=== PATIENT | female | born 1955 | race Caucasian/White ===

== ENCOUNTER 2020-09-21 14:34 | Observation (INO) ==
[2020-09-21 15:38] LABS: Basophils # 0.1 10*3/uL (0.0-0.2); Basophils % 0.6 % (0.0-0.8); Eosinophils # 0.4 10*3/uL (0.0-0.87); Eosinophils % 3.2 % (0.00-10.9); Hematocrit 41.7 VOL% (35.7-47.0); Hemoglobin 13.1 GM/DL (12.0-16.0); Immature Granulocytes % 0.6 %; Immature Granulocytes Absolute 0.07 #; Lymphocytes # 1.6 10*3/uL (1.4-4.0); Lymphocytes % 13.5 % (21.3-54.2); Mean Corpuscular HGB Conc 31.4 GM/DL (32-36); Mean Corpuscular Volume 88.2 FL (87-102); Mean Platelet Volume 11.4 FL (9.6-12.0); Monocytes % 6.5 % (1.7-12.7); Neutrophils % 75.6 % (38.7-73.9); Platelet Count 200 T/CUMM (130-400); Red Blood Count 4.73 MC/CUMM (3.8-5.5); Red Cell Distribution Width 14.9 % (9.3-17.3)
[2020-09-21 16:06] LABS: Alanine Aminotransferase 18 U/L (13-56); Albumin 3.4 G/DL (3.4-5.0); Alkaline Phosphatase 101 U/L (45-117); Aspartate Amino Transferase 19 U/L (0-37); Bilirubin,Total < 0.39 MG/DL (0.2-1.0); Blood Urea Nitrogen 19 MG/DL (7-18); Calcium 9.1 MG/DL (8.5-10.1); Carbon Dioxide 22 MMOL/L (21-32); Estimated Glom Filtration Rate 44 ML/MIN; Glucose 164 MG/DL (74-106); Osmolality,Calculated 284.4 MOS/KG (273-304); Potassium 3.6 MMOL/L (3.5-5.1); Sodium 140 MMOL/L (136-145); Total Protein 6.8 G/DL (6.4-8.9)
[2020-09-21] MEDS ORDERED: ENOXAPARIN 30 MG/0.3 ML SYRINGE SUBCUT STA (17:04)
[2020-09-21] MEDS ORDERED: ENOXAPARIN 100 MG/ML SYRINGE SUBCUT ONE (17:14)
[2020-09-21] MEDS: SODIUM CHLORIDE 0.9% 1,000 ML IV SCH (17:29)
[2020-09-21] MEDS ORDERED: ACETAMINOPHEN 325 MG TABLET PO PRN (17:35)
[2020-09-21] MEDS ORDERED: GLUCAGON 1 MG VIAL IM PRN ×2 (17:35)
[2020-09-21] MEDS ORDERED: DEXTROSE 50% 25 GM/50 ML VIAL IV PRN ×2 (17:35)
[2020-09-21] MEDS ORDERED: ONDANSETRON 4 MG/2 ML VIAL IV PRN (17:35)
[2020-09-21] MEDS ORDERED: traZODone 50 MG TABLET PO PRN (18:29)
[2020-09-21] MEDS: INSULIN LISPRO 100 UNIT/ML SUBCUT SCH (23:00)
[2020-09-22] MEDS: levETIRAcetam 500 MG TABLET PO SCH ×3 (00:10→22:27)
[2020-09-22] MEDS: PREGABALIN 100 MG CAPSULE PO SCH ×3 (00:10→22:28)
[2020-09-22] MEDS: SODIUM CHLORIDE 0.9% 1,000 ML IV SCH (05:01)
[2020-09-22 05:52] LABS: Basophils # 0.1 10*3/uL (0.0-0.2); Basophils % 0.9 % (0.0-0.8); Eosinophils # 0.3 10*3/uL (0.0-0.87); Eosinophils % 4.6 % (0.00-10.9); Hematocrit 41.1 VOL% (35.7-47.0); Hemoglobin 12.8 GM/DL (12.0-16.0); Immature Granulocytes % 0.5 %; Immature Granulocytes Absolute 0.04 #; Lymphocytes # 2.1 10*3/uL (1.4-4.0); Lymphocytes % 27.9 % (21.3-54.2); Mean Corpuscular HGB Conc 31.1 GM/DL (32-36); Mean Corpuscular Volume 89.7 FL (87-102); Monocytes % 7.4 % (1.7-12.7); Neutrophils % 58.7 % (38.7-73.9); Platelet Count 173 T/CUMM (130-400); Red Blood Count 4.58 MC/CUMM (3.8-5.5); Red Cell Distribution Width 14.8 % (9.3-17.3); White Blood Count 7.4 T/CUMM (4-12)
[2020-09-22 06:09] LABS: Calcium 8.7 MG/DL (8.5-10.1); Osmolality,Calculated 284.1 MOS/KG (273-304); Risk Ratio 3.35; VLDL CHOLESTEROL 46.8 MG/DL
[2020-09-22] MEDS: INSULIN LISPRO 100 UNIT/ML SUBCUT SCH ×4 (09:28→22:23)
[2020-09-22] MEDS ORDERED: ALBUTEROL/IPRATROPIUM 3 ML NEB RESP TX PRN (10:30)
[2020-09-22] MEDS ORDERED: methylPREDNISolone SOD SUC 40 MG/1 ML VIAL IV ONE (10:30)
[2020-09-22] MEDS: ASPIRIN EC 81 MG TABLET PO SCH (11:08)
[2020-09-22] MEDS: amLODIPine 10 MG TABLET PO SCH (11:08)
[2020-09-22] MEDS: ROSUVASTATIN 10 MG TABLET PO SCH (11:08)
[2020-09-22] MEDS: CLOPIDOGREL 75 MG TABLET PO SCH (11:09)
[2020-09-22] MEDS: allopurinoL 300 MG TABLET PO SCH (11:09)
[2020-09-22] MEDS: TOPIRAMATE 200 MG TABLET PO SCH ×2 (11:09→22:27)
[2020-09-22] MEDS: PANTOPRAZOLE 40 MG TABLET PO SCH ×2 (11:09→22:26)
[2020-09-22] MEDS: THEOPHYLLINE ER 300 MG TABLET PO SCH ×2 (11:10→22:27)
[2020-09-22 13:26] LABS: Bilirubin,Urine Negative (Negative); Blood, Urine Negative (Negative); Glucose,Urine (UA) Negative (Negative); Ketones,Urine Negative (Negative); Mucus,Urine Occasional /LPF (Occasional); Nitrite,Urine Negative (Negative); Protein,Urine Negative; RBC,Urine 4 /HPF (0-4); Squamous Epithelial Cell,Urine Occasional /HPF (0-10); Urine Appearance CLEAR (Clear); Urine Color Straw (Yellow); Urine Specific Gravity 1.009 (1.001-1.035); Urine Urobilinogen < 2.0 EU/DL (0.2-1.0); WBC,Urine 6 /HPF (0-6)
[2020-09-22 16:01] LABS: Barbiturates Screen,Urine Negative (Negative); Benzodiazepines Screen,Urine Negative (Negative); Cannabinoid Screen,Urine Negative (Negative); Opiate Screen,Urine Positive (Negative); Phencyclidine Screen,Urine Negative (Negative)
[2020-09-22] MEDS ORDERED: BENZTROPINE 1 MG TABLET PO SCH (21:00)
[2020-09-22] MEDS ORDERED: risperiDONE 1 MG TABLET PO SCH (21:00)
[2020-09-23 05:59] LABS: Basophils # 0.1 10*3/uL (0.0-0.2); Basophils % 0.7 % (0.0-0.8); Eosinophils # 0.2 10*3/uL (0.0-0.87); Eosinophils % 2.6 % (0.00-10.9); Hematocrit 42.2 VOL% (35.7-47.0); Hemoglobin 13.1 GM/DL (12.0-16.0); Immature Granulocytes % 0.4 %; Immature Granulocytes Absolute 0.03 #; Lymphocytes # 1.7 10*3/uL (1.4-4.0); Lymphocytes % 23.5 % (21.3-54.2); Mean Corpuscular Volume 88.7 FL (87-102); Mean Platelet Volume 11.6 FL (9.6-12.0); Monocytes % 8.3 % (1.7-12.7); Neutrophils % 64.5 % (38.7-73.9); Platelet Count 189 T/CUMM (130-400); Red Blood Count 4.76 MC/CUMM (3.8-5.5); Red Cell Distribution Width 14.6 % (9.3-17.3); White Blood Count 7.3 T/CUMM (4-12)
[2020-09-23 06:10] LABS: Potassium 3.7 MMOL/L (3.5-5.1)
[2020-09-23] MEDS: INSULIN LISPRO 100 UNIT/ML SUBCUT SCH ×3 (08:49→18:57)
[2020-09-23] MEDS: PREGABALIN 100 MG CAPSULE PO SCH (09:12)
[2020-09-23] MEDS: TOPIRAMATE 200 MG TABLET PO SCH (09:12)
[2020-09-23] MEDS: levETIRAcetam 500 MG TABLET PO SCH (09:12)
[2020-09-23] MEDS: amLODIPine 10 MG TABLET PO SCH (09:12)
[2020-09-23] MEDS: allopurinoL 300 MG TABLET PO SCH (09:13)
[2020-09-23] MEDS: CLOPIDOGREL 75 MG TABLET PO SCH (09:13)
[2020-09-23] MEDS: THEOPHYLLINE ER 300 MG TABLET PO SCH (09:13)
[2020-09-23] MEDS: ROSUVASTATIN 10 MG TABLET PO SCH (09:13)
[2020-09-23] MEDS: PANTOPRAZOLE 40 MG TABLET PO SCH (09:13)
[2020-09-23] MEDS: ASPIRIN EC 81 MG TABLET PO SCH (09:44)
[2020-09-23 15:30] VITALS: BP 161/77
[2020-09-26] MEDS ORDERED: ERGOCALCIFEROL 50,000 UNIT CAPSULE PO SCH (10:28)
== END 2020-09-23 20:15 | disposition home or self-care (01) ==
LOC: EDBD → EDUNIT# → N.TELEN 14:34 → N.ED 14:34 → SUATTDRO 17:35 → N.TELEN 18:50
PROVIDERS: ADMIT Emergency Medicine; ATTEND Internal Medicine